=== PATIENT | male | born 1990 | race Caucasian/White ===

== ENCOUNTER 2018-01-18 07:12 | Outpatient (CLI) | payer BC ==
--- NOTE | 2018-01-18 09:20 | ULT ---
HEPATIC ULTRASOUND WITH DOPPLER: Date: 01-18-18 Provided Clinical History: Right upper quadrant pain. FINDINGS: The visualized abdominal aorta is non-aneurysmal. The liver demonstrates a coarsened and echogenic ap pearance compatible with fatty infiltration. No evidence for mass or intrahepatic biliary ductal dila tation. The common duct is not evaluated. The gallbladder demonstrates no stones, wall thickening, or pericholecystic fluid. There is a 2-3 mm nonshadowing nonmobile echogenic focus associated with the gallbladder wall, compatible with a polyp. Visualized portions of the pancreas appear normal. The spl een is not enlarged and demonstrates no focal abnormality. Color doppler and spectral analysis of the hepatic portal venous, hepatic arterial, splenic venous an d splenic arterial waveforms demonstrates normal direction of flow. IMPRESSION: Fatty infiltration of the liver. POS: [facility]
== END 2018-01-18 07:13 | disposition home or self-care (01) ==
LOC: SCSULT 07:12
PROVIDERS: ATTEND Internal Medicine Gastroenterology
DX: R10.11 Right upper quadrant pain (principal); K76.0 Fatty (change of) liver, not elsewhere classified
CPT/HCPCS: 76705

== ENCOUNTER 2019-02-21 08:17 | Outpatient (CLI) | payer OTHER ==
--- NOTE | 2019-02-21 09:21 | ULT ---
HEPATIC DOPPLER WITH ULTRASOUND: HISTORY: Gallbladder polyp. COMPARISON: 01/18/2018. TECHNIQUE: Grayscale, color flow, Doppler imaging and spectral waveform analysis performed of the liver. FINDINGS: There is heterogeneous echotexture of the liver which may be due to hepatic steatosis or hepatocellul ar disease. Limited evaluation for hepatic masses and intrahepatic biliary dilatation. The contour of the hepatic margin is maintained. Right hepatic lobe measures 15.6 cm. Spleen has a normal echotexture, measuring 11.2 cm in maximum dimension. Common bile duct diameter is 0.4 cm. Nonshadowing, nonmobile echogenic focus in the gallbladder wall compatible with a gallbladder wall po lyp measuring 0.5 cm. Polyp is unchanged. Gallbladder was not thickened. No pericholecystic fluid. Negative Park's sign. Hepatic Doppler: There is patency and appropriate directional flow of the aorta, IVC. There is patenc y and appropriate directional flow of the left hepatic vein, right hepatic vein, middle hepatic vein, main portal vein, right portal vein and left portal vein. The splenic vein and artery as well a s the hepatic artery patency and appropriate directional flow. IMPRESSION: 1. Stable gallbladder polyp. 2. Normal hepatic Doppler. 3. Increased echogenicity of the liver which may be due to hepatic steatosis or hepatocellular diseas e. If there is concern for hepatic masses, consider abdomen MRI or CT. Transcribed Date/Time: 02/21/2019 9:50 AM
== END 2019-02-21 08:18 | disposition home or self-care (01) ==
LOC: SCSULT 08:17
PROVIDERS: ATTEND Internal Medicine Gastroenterology
DX: K82.4 Cholesterolosis of gallbladder (principal)
CPT/HCPCS: 76705

== ENCOUNTER 2022-04-26 09:36 | Outpatient (CLI) | payer BC, OTHER | END 2022-04-26 09:37 | disposition home or self-care (01) | LOC: NM 09:36 | PROVIDERS: ATTEND Physician Assistant Medical | DX: R10.11 Right upper quadrant pain (principal) | CPT/HCPCS: 78227; A9537 ==